=== PATIENT | female | born 1975 | race Caucasian/White ===

== ENCOUNTER 2023-12-25 06:27 | Outpatient (CLI) | payer BC, SELFPAY ==
[2023-12-25 06:47] LABS: Basophils Absolute Auto 0.1 K/mm3 (0.0-0.1); Basophils Percent Auto 0.9 % (0.2-1.2); Eosinophils Absolute Auto 0.2 K/mm3 (0-0.3); Eosinophils Percent Auto 3.3 % (0-4.4); Hematocrit 41.1 % (37.0-47.0); Hemoglobin 14.1 g/dL (12.0-15.0); Immature Granulocyte Absolute 0.02 K/mm3 (0.00-0.031); Immature Granulocyte Percent A 0.3 % (0-0.5); Lymphocytes Absolute Auto 2.31 K/mm3 (0.9-3.2); Lymphocytes Percent Auto 36.3 % (18.3-44.2); Mean Corpuscular HGB Conc 34.3 g/dl (32-36); Mean Corpuscular Hemoglobin 29.9 pg (26-34); Mean Corpuscular Volume 87.1 fl (80-100); Mean Platelet Volume 10.2 fl (7.4-10.4); Monocytes Absolute Auto 0.5 K/mm3 (0.1-0.6); Monocytes Percent Auto 8.5 % (2.6-8.5); Neutrophils Absolute Auto 3.2 K/mm3 (1.3-6.7); Neutrophils Percent Auto 50.7 % (45.5-73.1); Platelet Count Result 269 k/mm3 (150-375); Red Blood Count 4.72 M/mm3 (4.2-5.4); Red Cell Distribution Width 11.5 % (11.5-14.5); White Blood Count 6.4 K/mm3 (4.5-10.0)
[2023-12-25 06:59] LABS: Alanine Aminotransferase 16 U/L (6-35); Albumin Level 4.1 g/dL (3.5-5.1); Alkaline Phosphatase 57 U/L (38-126); Anion Gap 6 mmol/L (8-16); Aspartate Amino Transferase 23 U/L (14-36); Bilirubin,Total 0.6 mg/dL (0.2-1.3); Blood Urea Nitrogen 10 mg/dL (7-17); Carbon Dioxide 24 mmol/L (22-30); Chloride 108 mmol/L (98-107); Cholesterol 166 mg/dL (0-200); Estimated Glomerular Filt Rate > 60; Glucose 99 mg/dL (65-110); HDL Direct 34 mg/dL; Potassium 3.9 mmol/L (3.4-5.0); Sodium 138 mmol/L (137-145); Triglycerides 126 mg/dL (<150)
[2023-12-25 07:10] LABS: LDL Cholesterol Direct 113 mg/dL
[2023-12-25 07:37] LABS: Free T4 Free Thyroxine 1.66 ng/mL (0.78-2.19)
== END 2023-12-25 06:28 | disposition home or self-care (01) ==
LOC: ANHOBOP 06:30
PROVIDERS: PCP Student in an Organized Health Care Education/Training Program; Visit Provider Obstetrics & Gynecology
DX: I48.91 Unspecified atrial fibrillation (principal)
CPT/HCPCS: 36415; 80053; 80061; 84439; 84443; 85025

== ENCOUNTER 2025-06-06 05:52 | Outpatient (CLI) | payer BC, SELFPAY ==
--- OUTSIDE RECORDS SUMMARY | 2025-06-06 05:57 | XMS_ITS | Clinical Summary ---
Author Organization [facility] Address Formerly [facility] [place] [address] Care Team Providers Care Home Theater Installer Name Role Phone Richard Azevedo Brenda CASTRO Primary Care Provider + Allergies Active Allergy Reactions Criticality Noted Date Comments Senna Rash Medium Sulfa Antibiotics Hives Medium Medications Cholecalciferol 2000 units Tab take 1 by Oral route every day 0 Active aspirin 81 MG chewable tablet Chew 1 tablet (81 mg total) by mouth daily. Active cetirizine 10 MG tablet Take 1 tablet (10 mg total) by mouth daily. Active vitamin B-12 (CYANOCOBALAMIN) 1000 mcg tablet Take 1 tablet (1,000 mcg total) by mouth daily. Active Misc Natural Products ([employer] HEALTH OR) Take 1 tablet by mouth daily. Active TURMERIC CURCUMIN OR Take 1 tablet by mouth daily. Active magnesium oxide (MAG-OX) 250 MG tablet Take 1 tablet (250 mg total) by mouth daily. Active levothyroxine (SYNTHROID) 100 MCG tabletIndications:A cquired hypothyroidism Take 1 tablet (100 mcg total) by mouth every morning. 90 tablet 3 4 Active levothyroxine (SYNTHROID) 88 MCG tabletIndications:A cquired hypothyroidism Take 1 tablet (88 mcg total) by mouth every morning. 90 tablet 3 4 Active sotalol (BETAPACE) 80 MG tablet Take 1 tablet (80 mg total) by mouth 2 (two) times daily. 180 tablet 2 4 Active Active Problems Problem Noted Date Diagnosed Date Metabolic dysfunction-associated steatohepatitis (MASH) 06/03/2024 Atrial fibrillation, unspecified type (CMS/HCC H HS/HCC) 06/17/2019 Acquired hypothyroidism 06/17/2019 MVP (mitral valve prolapse) Immunizations Immunization Administration Dates Next Due Influenza Adult (Generic) 09/15/2023,09/26/2020 Pneumococcal (Prevnar 20) 08/07/2022 Tdap (Generic) 05/07/2016 Family History Medical History Relation Comments Cancer Father Lung Heart Disease Mother Relation Status Comments Brother Alive Father Mother Alive Social History Tobacco Use Types Packs/Day Years Used Date Smoking Tobacco: Never Smokeless Tobacco: Never Alcohol Use Standard Drinks/Week Comments Yes 0 (1 standard drink = 0.6 oz pure alcohol) Tries to just use on weekends, 1-2 AUDIT-C Answer Date Recorded Q1: How often do you have a drink containing alcohol? 4 or more times a week 08/23/2020 Q2: How many drinks containi ng alcohol do you have on a typical day when you are drinking? 3 or 4 0 Q3: How often do you have si x or more drinks on one occasion? Less than monthly 08/23/2020 PHQ-2 Answer Date Recorded Patient Health Questionnaire-2 Score 0 06/03/2024 Comments No Sex and Gender Information Value Date Recorded Sex Assigned at Not on file Legal Sex Female 7:54 PM CDT Gender Identity Female 02/12/2022 12:14 PM CDT Sexual Orientation Straight 02/12/2022 12 :14 PM CDT Last Filed Vital Signs Vital Sign Reading Time Taken Comments Blood Pressure 120/84 09/15/2024 10:33 AM CDT Pulse 75 09/15/2024 10:33 AM CDT Temperature 36.7 C (98.1 F) 06/03/2024 11:25 AM CDT Respiratory Rate 16 06/03/2024 11:25 AM CDT Oxygen Saturation 98% 09/15/2024 10:33 AM CDT Inhaled Oxygen Concentration - - Weight 100.2 kg (221 lb) 09/15/2024 10:33 AM CDT Height 185.4 cm (6' 1) 09/15/2024 10:33 AM CDT Body Mass Index 29.16 09/15/2024 10:33 AM CDT Plan of Treatment Upcoming Encounters Date Type Department Care Team (Late st Contact Info) Description 10/19/2025 12:45 PM ORTHOTIC AIDE Office Visit [facility], [facility] [address] [place] [address] Maxwell López MD Three [facility]. [facility] [address] [place], [place] [id number] Health Maintenance Due Date Last Done Comments Hepatitis B Vaccines (1 of 3 - 19+ 3-dose series) 1992 Zoster Vaccines (1 of 2) 2023 COVID-19 Vaccine (2023- season) 2024 12/01/2020, 11/10/2020 PHQ-2 (Physician [place]) 11/24/2024 06/03/2024 Annual Physical 06/03/2025 06/03/2024, 0803/2020, 06/17/2019 Colorectal Cancer Screening FIT-DNA (3 Years) 08/15/2025 08/15/2022, 08/15/2022 DTaP, Tdap and Td Vaccines (2 - Td or Tdap) 05/07/2026 05/07/2016 Mammogram Screening 09/28/2026 09/28/2024, 09/09/2023, 02/19/2022, Additional history exists Hepatitis C Completed 08/07/2022 Pneumococcal Vaccine: 50+ Years Completed 08/07/2022 Meningococcal B Vaccine Aged Out No l onger eligible based on patient's age to complete this topic Meningococcal Vaccine Aged Out No carmita andrew eligible based on patient's age to complete this topic RSV Immunizations Under 20 Months Aged Out No longer eligible based on patient's age to complete this topic Procedures Procedure Name Priority Date/Time Associated Diagnosis Comments MG SCREENING W NATALIIA DWAYNE DIGI Routine 09/28/2024 2:10 PM ORTHOTIC AIDE Screening mammogram for breast cancer COLOGUARD (EXACT SCIENCE) Routine 08/15/2022 9:55 AM CDT Screening for malignant neoplasm of colon HEPATITIS C ANTIBODY Routine 08/07/2022 1:48 PM CDT Screening for lipid disorders Screening for endocrine, metabolic and immunity disorder Need for hepatitis C screening test Annual physical exam from Last 3 Months or Most Recently Relevant to Health Maintenance Results * MG SCREENING W NATALIIA DWAYNE DIGI (09/28/2024 2:10 PM ORTHOTIC AIDE) Anatomical Region Laterality Modality Breast Bilateral Mammography 09/28/2024 2:18 PM ORTHOTIC AIDE Impressions 09/28/2024 2:19 PM ORTHOTIC AIDE IMPRESSION: No suspicious mammographic findings. Recommendation: 1. Routine Screening, Bilateral Assessment: ACR BI-RADS 2 - BENIGN FINDING(S) Ordered By: MAVERICK CEDILLO Interpreted By: Florentin Ryder, 09/28/2024 2:18 PM Narrative 09/28/2024 2:19 PM ORTHOTIC AIDE [address] [address] Examination: Screening bilateral mammogram Exam Date/Time: 09/28/2024 1:53 PM Clinical history: No current complaints. Comparison: 09/09/2023 Technique: Digital screening mammography of both breasts was performed. Breast tomosynthesis acquisitions were obtained and reviewed. This study was read with the assistance of a computer-aided detection system. Tissue density: There are scattered areas of fibroglandular density. Findings: No suspicious masses, malignant appearing calcifications, skin thickening or other abnormalities are present. No significant change from the prior exam. us Maverick Cedillo MD MAMMO Final Result * COLOGUARD (Xiaoying SCIENCE) (08/15/2022 9:55 AM CDT) COLOGUARD RESULT Negative Negative [employer] (CLIA #:[id number]) Comment: NEGATIVE TEST RESULT. A negative Cologuard result indicates a low likelihood that a colorectal cancer (CRC) or advanced adenoma (adenomatous polyps with more advanced pre-malignant features) is present. The chance that a person with a negative Cologuard test has a colorectal cancer is less than 1 in 1500 (negative predictive value >99.9%) or has an advanced adenoma is less than 5.3% (negative predictive value 94.7%). These data are based on a prospective cross-sectional study of 10,000 individuals at average risk for colorectal cancer who were screened with both Cologuard and colonoscopy. (Jacinto Roldan et al, N Engl J Med 2014;370(14):9032-8249) The normal value (reference range) for this assay is negative. COLOGUARD RE-SCREENING RECOMMENDATION: Periodic colorectal cancer screening is an important part of preventive healthcare for asymptomatic individuals at average risk for colorectal cancer. Following a negative Cologuard result, the [place] Cancer Society and U.S. Multi-Society Task Force screening guidelines recommend a Cologuard re-screening interval of 3 years. References: [place] Cancer Society Guideline for Colorectal Cancer Screening: https://www.cancer.org/cancer/ozzdh-dxwear-vqtdif/vvbygsffs-etltxcsku-aoirqbu/ac s-rec ommendations.html.; Fidencio DK, Alireza POLANCO, Tonia StevensK, Colorectal Cancer Screening: Recommendations for Physicians and Patients from the U.S. Multi-Society Task Force on Colorectal Cancer Screening , Am J Gastroenterology 2017; 112:4923-1844. TEST DESCRIPTION: Composite algorithmic analysis of stool DNA-biomarkers with hemoglobin immunoassay. Quantitative values of individual biomarkers are not reportable and are not associated with individual biomarker result reference ranges. Cologuard is intended for colorectal cancer screening of adults of either sex, 45 years or older, who are at average-risk for colorectal cancer (CRC). Cologuard has been approved for use by the U.S. FDA. The performance of Cologuard was established in a cross sectional study of average-risk adults aged 50-84. Cologuard performance in patients ages 45 to 49 years was estimated by sub-group analysis of near-age groups. Colonoscopies performed for a positive result may find as the most clinically significant lesion: colorectal cancer [4.0%], advanced adenoma (including sessile serrated polyps greater than or equal to 1cm diameter) [20%] or non- advanced adenoma [31%]; or no colorectal neoplasia [45%]. These estimates are derived from a prospective cross-sectional screening study of 10,000 individuals at average risk for colorectal cancer who were screened with both Cologuard and colonoscopy. (Jacinto Sebastian al, N Engl J Med 2014;370(14):1120-3876.) Cologuard may produce a false negative or false positive result (no colorectal cancer or precancerous polyp present at colonoscopy follow up). A negative Cologuard test result does not guarantee the absence of CRC or advanced adenoma (pre-cancer). The current Cologuard screening interval is every 3 years. ([place] Cancer Society and U.S. Multi-Society Task Force). Cologuard performance data in a 10,000 patient pivotal study using colonoscopy as the reference method can be accessed at the following location: www.Hittahem.[employer]/results. Additional description of the Cologuard test process, warnings and precautions can be found at www.cologuard.[employer]. STOOL STOOL SPECIMEN / Unknown 08/15/2022 9:55 AM CDT 08/16/2022 4:48 PM CDT Richard Azevedo DO BODY FLUIDS AND STOOLS O RDERABLES Final Result Performing Organization Address [facility] Co de Phone Number [facility] ([address] [facility]) [address] [place] [address], [email or web address] (CLIA #:[id number]) [address] [place] [address] * HEPATITIS C ANTIBODY (08/07/2022 1:48 PM CDT) HEPATITIS C AB NON-REACTI VE NON-REACT MOHAMUD 08/07/2022 10:[address] [facility] Comment: ANTIBODIES TO HCV NOT DETECTED. DOES NOT EXCLUDE THE POSSIBILITY OF EXPOSURE TO HCV. 08/07/2022 1:48 PM CDT Richard Azevedo DO LABORATORY Final Re sult Performing Organization Address [facility] Co de Phone Number [facility] [address] [place] [phone], [id number] from Last 3 Months or Most Recently Relevant to Health Maintenance Insurance [facility] Care Teams Home Theater Installer Relationship Specialty Start Date End Date Richard Azevedo DO [address] [place] [address] PCP - General FAMILY PRACTICE 08/07/22
--- OUTSIDE RECORDS SUMMARY | 2025-06-06 05:57 | XMS_ITS | Encounter Summary ---
Author Organization [facility] Address [address] [place] [address] Care Team Providers Care Cloth Bin Packer Name Role Phone Richard Azevedo Brenda CASTRO Primary Care Provider + Encounter Details Date Type Department Care Team ([facility] st Contact Info) Description 10/28/2023 [employer] Message Enc [facility] THREE [facility], [place] [id number] Maxwell López MD Three [facility]. [address] [address] Covid and Paxlovid Social History Tobacco Use Types Packs/Day Years [...] than monthly 08/23/2020 PHQ-2 Answer Date Recorded PHQ-2 Score - If the patient scores above 3, please move on to questions 3-9 0 08/07/2022 Comments No Sex and Gender Information Value Date Recorded Sex Assigned at Not on file Legal Sex Female 7:54 PM CDT Gender Identity Female 02/12/2022 12:14 PM CDT Sexual Orientation Straight 02/12/2022 12 :14 PM CDT documented as of this encounter Progress Notes * BETTIE Gaming - 10/29/2023 3:40 PM CST Not absolutely necessary. What symptoms is she having? RTISING SALES ASSISTANT * Carol Arboleda RN - 10/29/2023 8:49 AM CST Please advise. RTISING SALES ASSISTANT documented in this encounter Plan of Treatment Upcoming Encounters Date Type Department Care Team (Late st Contact Info) Description 10/19/2025 12:45 PM ADVERTISING SALES ASSISTANT Office Visit [facility], [address] [address] Maxwell López MD Three [facility]. [address] [address] documented as of this encounter Visit Diagnoses Not on filedocumented in this encounter Care Teams Cloth Bin Packer Relationship Specialty Start Date End Date Richard Azevedo DO [address] [place] [address] PCP - General FAMILY PRACTICE 08/07/22 documented as of this encounter
--- OUTSIDE RECORDS SUMMARY | 2025-06-06 05:57 | XMS_ITS | Clinical Summary ---
Author Organization [facility] [address] [facility] [address] Address [address] [place] [address] Care Team Providers Care Planning Associate Name Role Phone Mitali Garcia MD Primary Care Provider [phone] Allergies Active Allergy Reactions Criticality Noted Date Comments Senna Rash Medium Sennosides Rash Medium Sulfa (Sulfonamide Antibiotics) Hives Medium Medications cholecalciferol (VITAMIN D3) 2,000 unit capsule take 1 by Oral route every day 0 07/20/2010 Active multivitamin tablet tablet take 1 tablet by ORAL route every day with food 0 07/20/2010 Active calcium carbonate (CALCIUM 600) 1,500 mg (600 mg of elemental calcium) tablet take 1 by Oral route 2 times every day 0 0 08/30/2013 Active levothyroxine (SYNTHROID, LEVOTHROID) 175 mcg tablet daily. Active sotalol (BETAPACE) 80 mg tabletIndications :Paroxysmal atrial fibrillation (HCC) Take 1 tablet (80 mg total) by mouth 2 (two) times a day. 180 tablet 3 12/08/2018 Active Active Problems Problem Noted Date Diagnosed Date Mitral valve prolapse 01/13/2018 Paroxysmal atrial fibrillation 07/09/2017 Medical History Medical History Date Comments Hx Other Medical Hypothyroidism, Primary Hx Other Medical 2013 Stress fracture , LLE Family History Medical History Relation Name Comments Other Father 2 High chol, lung CA; Cause of : High chol, lung CA Relation Name Status Comments Father 1 (Age 65) Father 2 Social History Tobacco Use Types Packs/Day Years Used Date Smoking Tobacco: Never Smokeless Tobacco: Never Alcohol Use Standard Drinks/Week Comments Yes 2 (1 standard drink = 0.6 oz pur e alcohol) Comments Unknown Sex and Gender Information Value Date Recorded Sex Assigned at Not on file Legal Sex Female 12:58 AM EQUITIES ANALYST Gender Identity Not on file Sexual Orientation Not on file Obstetrics History Last Filed Vital Signs Vital Sign Reading Time Taken Comments Blood Pressure 104/72 12/08/2018 11:03 AM EQUITIES ANALYST Pulse 76 12/08/2018 11:03 AM EQUITIES ANALYST Temperature 37.1 C (98.7 F) 08/26/2017 12:27 PM CDT Respiratory Rate - - Oxygen Saturation 90% 12/08/2018 11:03 AM EQUITIES ANALYST Inhaled Oxygen Concentration - - Weight 103.9 kg (229 lb) 12/08/2018 11:03 AM EQUITIES ANALYST Height 185.4 cm (6' 1) 12/08/2018 11:03 AM EQUITIES ANALYST Body Mass Index 30.21 12/08/2018 11:03 AM EQUITIES ANALYST Plan of Treatment Not on file Insurance [facility] [place] [address] Care Teams Planning Associate Relationship Specialty Start Date End Date Mitali Garcia MD PCP - General Family Practice 8/16/17
--- OUTSIDE RECORDS SUMMARY | 2025-06-06 05:57 | XMS_ITS | Referral Summary ---
Author Organization [facility] [address] Address [address] [place] [address] Care Team Providers Care Sinter Feeder Name Role Phone Mitali Garcia MD Primary Care Provider [phone] Allergies Active Allergy Reactions Criticality Noted Date [...] valve prolapse 01/13/2018 Paroxysmal atrial fibrillation 07/09/2017 Social History Tobacco Use Types Packs/Day Years Used Date Smoking Tobacco: Never Smokeless Tobacco: Never Alcohol Use Standard Drinks/Week Comments Yes 2 (1 standard drink = 0.6 oz pur e alcohol) Comments Unknown Sex and Gender Information Value Date Recorded Sex Assigned at Not on file Legal Sex Female 12:58 AM AMERICAN BOARD CERTIFIED ORTHOTIST Gender Identity Not on file Sexual Orientation Not on file Last Filed Vital Signs Vital Sign Reading Time Taken Comments Blood Pressure 104/72 12/08/2018 11:03 AM AMERICAN BOARD CERTIFIED ORTHOTIST Pulse 76 12/08/2018 11:03 AM AMERICAN BOARD CERTIFIED ORTHOTIST Temperature 37.1 C (98.7 F) 08/26/2017 12:27 PM CDT Respiratory Rate - - Oxygen Saturation 90% 12/08/2018 11:03 AM AMERICAN BOARD CERTIFIED ORTHOTIST Inhaled Oxygen Concentration - - Weight 103.9 kg (229 lb) 12/08/2018 11:03 AM AMERICAN BOARD CERTIFIED ORTHOTIST Height 185.4 cm (6' 1) 12/08/2018 11:03 AM AMERICAN BOARD CERTIFIED ORTHOTIST Body Mass Index 30.21 12/08/2018 11:03 AM AMERICAN BOARD CERTIFIED ORTHOTIST Plan of Treatment Not on file Insurance [facility] CHOICE PLUS [facility] HMO/PPO Address: [place] [address] Care Teams Sinter Feeder Relationship Specialty Start Date End Date Mitali Garcia MD PCP - General Family Practice 07/09/17
--- OUTSIDE RECORDS SUMMARY | 2025-06-06 05:57 | XMS_ITS | Encounter Summary ---
Author Organization [facility] Address [address] [place] [address] Care Team Providers Care Shipping Hand Name Role Phone Filiberto Ocasio MD Primary Care Provider [phone] Richard Azevedo DO Primary Care Provider + Encounter Details Date Type Department Care Team (Late st Contact Info) Description 08/22/2020 Abstract [facility], [address] [address] Michael Ryan MA Social History Tobacco Use Types Packs/Day Years Used Date Smoking Tobacco: Never Smokeless Tobacco: Never Alcohol Use Standard Drinks/Week Comments Yes 0 (1 standard drink = 0.6 oz pur e alcohol) AUDIT-C Answer Date Recorded Q1: How often do you have a drink containing alcohol? 4 or more times a week 08/23/2020 Q2: How many drinks containi ng alcohol do you have on a typical day when you are drinking? 3 or 4 0 Q3: How often do you have si x or more drinks on one occasion? Less than monthly 08/23/2020 Comments No Sex and Gender Information Value Date Recorded Sex Assigned at Not on file Legal Sex Female 7:54 PM CDT Gender Identity Female 02/12/2022 12:14 PM CDT Sexual Orientation Straight 02/12/2022 12 :14 PM CDT COVID-19 Exposure Response Date Recorded In the last month, have you been in contact with someone who was confirmed or suspected to have Coronavirus / COVID-19? No / Unsure 08/23/2020 9:12 AM CDT documented as of this encounter Functional Status documented as of this encounter Plan of Treatment Upcoming Encounters Date Type Department Care Team (Late st Contact Info) Description 10/19/2025 12:45 PM CONTROL ELECTRICIAN Office Visit [facility] THREE [facility], [address] [address] Maxwell López MD Three [facility]. [facility] [address] [place] [address] documented as of this encounter Procedures Procedure Name Priority Date/Time Associated Diagnosis Comments LIPID PANEL Routine 01/13/2018 documented in this encounter Results * LIPID PANEL (01/13/2018) CHOLESTEROL 172 HDL 34 TRIGLYCERIDES 197 NON HDL CHOLESTEROL 138 LDL (CALCULATED) 98 01/13/2018 us Doc [facility] LABORATORY Final Result documented in this encounter Visit Diagnoses Not on filedocumented in this encounter Care Teams Shipping Hand Relationship Specialty Start Date End Date Filiberto Ocasio MD PCP - General FAMILY PRACTICE 06/17/19 08/06/22 Richard Azevedo DO [address] [place] [address] PCP - General FAMILY PRACTICE 08/07/22 documented as of this encounter
--- OUTSIDE RECORDS SUMMARY | 2025-06-06 05:57 | XMS_ITS | Encounter Summary ---
Author Organization [facility] Address [address] [address] Care Team Providers Care Public Bath Attendant Name Role Phone Kevin Cordoba MD Primary Care Provide r Mitali Garcia MD Primary Care Provider [phone] Encounter Details Date Type Department Care Team (Late st Contact Info) Description 04/01/2017 Orders Only [facility] ProviderCharly MD [address] [place] [address] Social History Tobacco Use Types Packs/Day Years Used Date Smoking Tobacco: Never Alcohol Use Standard Drinks/Week Comments Yes 0 (1 standard drink = 0.6 oz pur e alcohol) Comments Unknown Sex and Gender Information Value Date Recorded Sex Assigned at Not on file Legal Sex Female 12:58 AM ENTRY TECH Gender Identity Not on file Sexual Orientation Not on file documented as of this encounter Plan of Treatment Not on file documented as of this encounter Procedures Procedure Name Priority Date/Time Associated Diagnosis Comments CARDIOLOGY REPORT 04/01/2017 CARDIOLOGY REPORT 04/01/2017 documented in this encounter Results * CARDIOLOGY REPORT (04/01/2017) Anatomical Region Laterality Modality Other Narrative 04/01/2017 Ordered by an unspecified provider. Historical Provider [facility] Final Result * CARDIOLOGY REPORT (04/01/2017) Anatomical Region Laterality Modality Other Narrative 04/01/2017 Ordered by an unspecified provider. Historical Provider [facility] Final Result documented in this encounter Visit Diagnoses Not on filedocumented in this encounter Care Teams Public Bath Attendant Relationship Specialty Start Date End Date Kevin Cordoba MD [address] [facility] [address] [place] [address] PCP - General 08/30/13 07/08/17 Mitali Garcia MD [address] [facility] [address] [place] [address] PCP - General Family Practice 07/09/17 documented as of this encounter
--- OUTSIDE RECORDS SUMMARY | 2025-06-06 05:57 | XMS_ITS | Encounter Summary ---
Author Organization [facility] Address [address] [place] [address] Care Team Providers Care Brick Kiln Burner Name Role Phone Filiberto Ocasio MD Primary Care Provider [phone] Richard Azevedo DO Primary Care Provider + Encounter Details Date Type Department Care Team (Late st Contact Info) Description 02/26/2022 [employer] Message Enc [facility] Family Medicine [address] [address] [facility] Provider Appointment Request Social History Tobacco Use Types Packs/Day Years [...] Exposure Response Date Recorded In the last 10 days, have yo u been in contact with someone who was confirmed or suspected to have Coronavirus/COVID-19? No / Unsure 02/19/2022 10:32 AM CDT documented as of this encounter Plan of Treatment Upcoming Encounters Date Type Department Care Team (Late st Contact Info) Description 10/19/2025 12:45 PM FERRY ENGINEER Office Visit [facility] [place], [address] [id number] Maxwell López MD Three [facility]. [facility] [address] [place] [address] documented as of this encounter Visit Diagnoses Not on filedocumented in this encounter Care Teams Brick Kiln Burner Relationship Specialty Start Date End Date Filiberto Ocasio MD PCP - General FAMILY PRACTICE 06/17/19 08/06/22 Richard Azevedo DO [address] [place] [address] PCP - General FAMILY PRACTICE 08/07/22 documented as of this encounter
--- OUTSIDE RECORDS SUMMARY | 2025-06-06 05:57 | XMS_ITS | Data Portability ---
Author Organization [facility] Address [address] [address] Assessment No assessment recorded. Plan of Treatment Reminders Order Date Submit Date Provider Last Modified By Organization Details Last Modified Time Details Appointments None recorded. Lab rapid flu (A+B) 2016 017 [facility], [facility], [address], [place], [address], 7 16:17:35 Referral dermatolog ist referral 2017 018 [email or web address] Matt Freeman MD, [address] [place], [address], 8 15:28:08 Procedures None recorded. Surgeries None recorded. Imaging XR, chest, 2 view 2016 017 [facility], [address] [place], [address], 7 15:19:34 XR, chest, 2 view [address], [address] [place], [address], 7 10:58:51 Medication Orders levothyrox ine 88 mcg tablet 2016 017 mguthrifrandy [facility] 1418, [address], [address], 8 10:11:16 levothyrox ine 100 mcg tablet [address] [facility] 1418, [address], [address], 8 10:11:03 nystatin 100,000 unit/mL oral suspension 2016 017 [facility] 1418, [address], [address], 7 12:35:30 Tessalon Perles 100 mg capsule [address] [facility] 1418, [facility] [address], [address], 7 12:42:33 prednisone 20 mg tablet [address] [facility] 1418, [facility] [address], [address], 7 12:42:43 Patient TargetsNo targets recorded. Patient Instructions Encounter Date Encounter Id Patient Instructions Last Modified By Organization Details Last Modified Time 01/09/2017 [id number] I was present in the [facility] and available to review and discuss this patient with the resident. I agree with the assessement and plan. [email or web address] Not available 01/21/2017 16:05:51 01/31/2017 [id number] I was present an d available in the Family Medicine clinic to discuss this patient's care during the appointment. I agree with the resident's assessment and plan as documented. ADRY mar Not available 02/02/2017 13:15:15 12/16/2017 [id number] I was present in the clinic to discuss this patient at the time of the visit. I agree with the documented assessment and plan. Jenelle Rainey MD [email or web address] Not available 12/18/2017 23:00:49 Reason for Referral Overhead Crane Inspector Referral for S kin lesion Referring Physician: Yi Cervantes, Wheel Lacer And Truer, Encounter Date: 12/16/2017 Results Created Date Observation Date Name Description Value Unit Range Abnormal Flag Note LastModifiedBy Organization Detail LastModifiedTime 01/09/20 17 01/09/2017 rapid flu (A+B) please note: COMMEN T BECAU SE A NEGAT MOHAMUD RAPID INFLU JOSE DANIEL ANTIG EN EIA TEST MAY NOT RULE- OUT INFLU JOSE DANIEL VIRAL INFEC TION, THE CDC AND OTHER PUBLI C HEALT H AGENC IES HAVE RECOM SARIAH D THAT CONFI RMATO RY TESTI NG USING VIRAL CULTU RE OR NUCLE IC ACID AMPLI FICAT ION SHOUL D BE CONSI DERED WHEN CLINI JEFFRY SIGNS AND SYMPT OMS ARE CONSI STENT WITH INFLU JOSE DANIEL- LIKE ILLNE SS, WELL TO ELIJAH T IN DETEC TING OTHER RESPI RATOR Y VIRUS ES THAT CAN PRODU CE SIMIL AR CLINI JEFFRY SYMPT OMS. (REFE RENCE : WWW.C DC.GO V/FLU /PDF/ PROFE SSION ALS/D IAGNO SIS/C REI ANDREW_ HARVEY NCE_R IDT.P DF) Not Available [facility] ([facility]) [address] [place], [address], 01/10/2017 16:17:35 01/09/20 17 01/10/2017 rapid flu (A+B) influenza A Ag, EIA NEGATI VE negati ve Not Available [facility] ([facility]) [address] [place], [address], 01/10/2017 16:17:35 01/09/20 17 01/10/2017 rapid flu (A+B) influenza B Ag, EIA NEGATI VE negati ve Not Available [facility] ([facility]) [address] [place], [address], 01/10/2017 16:17:35 01/09/20 17 01/10/2017 rapid flu (A+B) comment SEE NOTE Not Available [facility] ([facility]) [address] [place], [address], 01/10/2017 16:17:35 02/27/20 17 02/27/2017 TSH, ultra -sens itive , serum TSH 0.017 uIU/m L 0.450- 4.500 below low normal Not Available [facility] ([facility]) [address] [facility], [place], [address], 02/27/2017 09:19:18 07/29/20 17 07/30/2017 CBC w/ auto diff WBC 7.6 x10e3 /uL 3.4-10 .8 Not Available [facility] ([facility]) [address] [place], [address], 07/30/2017 14:11:59 07/29/20 17 07/30/2017 CBC w/ auto diff RBC 4.63 x10e6 /uL 3.77-5 .28 Not Available [facility] ([facility]) [address] [facility], [place], [address], 07/30/2017 14:11:59 07/29/20 17 07/30/2017 CBC w/ auto diff hemoglobin 13.4 g/dL 11.1-1 5.9 Not Available [facility] ([facility]) [address] [facility], [place], [address], 07/30/2017 14:11:59 07/29/20 17 07/30/2017 CBC w/ auto diff hematocrit 41.2 % 34.0-4 6.6 Not Available [facility] ([facility]) [address] [facility], [place], [address], 07/30/2017 14:11:59 07/29/20 17 07/30/2017 CBC w/ auto diff MCV 89 fL 79-97 Not Available [facility] ([facility]) [address] [facility], [place], [address], 07/30/2017 14:11:59 07/29/20 17 07/30/2017 CBC w/ auto diff MCH 28.9 pg 26.6-3 3.0 Not Available [facility] ([facility]) [address] [facility], [place], [address], 07/30/2017 14:11:59 07/29/20 17 07/30/2017 CBC w/ auto diff MCHC 32.5 g/dL 31.5-3 5.7 Not Available [facility] ([facility]) [address] [facility], [place], [address], 07/30/2017 14:11:59 07/29/20 17 07/30/2017 CBC w/ auto diff RDW 12.2 % 12.3-1 5.4 below low normal Not Available [facility] ([facility]) [address] [facility], [place], [address], 07/30/2017 14:11:59 07/29/20 17 07/30/2017 CBC w/ auto diff platelets 270 x10e3 /uL 150-37 9 Not Available [facility] ([facility]) [address] [facility], [place], [address], 07/30/2017 14:11:59 07/29/20 17 07/30/2017 CBC w/ auto diff neutrophils 56 % Not Available [facility] ([facility]) [address] [facility], [place], [address], 07/30/2017 14:11:59 07/29/20 17 07/30/2017 CBC w/ auto diff lymphs 33 % Not Available [facility] ([facility]) [address] [facility], [place], [address], 07/30/2017 14:11:59 07/29/20 17 07/30/2017 CBC w/ auto diff monocytes 8 % Not Available [facility] ([facility]) [address] [facility], [place], [address], 07/30/2017 14:11:59 07/29/20 17 07/30/2017 CBC w/ auto diff eos 3 % Not Available [facility] ([facility]) [address] [place], [address], 07/30/2017 14:11:59 07/29/20 17 07/30/2017 CBC w/ auto diff basos 0 % Not Available [facility] ([facility]) [address] [place], [address], 07/30/2017 14:11:59 07/29/20 17 07/30/2017 CBC w/ auto diff immature cells TREE WRAPPER Not Available [facility] ([facility]) [address] [place], [address], 07/30/2017 14:11:59 07/29/20 17 07/30/2017 CBC w/ auto diff neutrophils (absolute) 4.2 x10e3 /uL 1.4-7. 0 Not Available [facility] ([facility]) [address] [place], [address], 07/30/2017 14:11:59 07/29/20 17 07/30/2017 CBC w/ auto diff lymphs (absolute) 2.5 x10e3 /uL 0.7-3. 1 Not Available [facility] ([facility]) [address] [place], [address], 07/30/2017 14:11:59 07/29/20 17 07/30/2017 CBC w/ auto diff monocytes(ab solute) 0.6 x10e3 /uL 0.1-0. 9 Not Available [facility] ([facility]) [address] [place], [address], 07/30/2017 14:11:59 07/29/20 17 07/30/2017 CBC w/ auto diff eos (absolute) 0.2 x10e3 /uL 0.0-0. 4 Not Available [facility] ([facility]) [address] [place], [address], 07/30/2017 14:11:59 07/29/20 17 07/30/2017 CBC w/ auto diff baso (absolute) 0.0 x10e3 /uL 0.0-0. 2 Not Available [facility] ([facility]) [address] [place], [address], 07/30/2017 14:11:59 07/29/20 17 07/30/2017 CBC w/ auto diff immature granulocytes 0 % Not Available [facility]) [address] [place], [address], 07/30/2017 14:11:59 07/29/20 17 07/30/2017 CBC w/ auto diff immature grans (abs) 0.0 x10e3 /uL 0.0-0. 1 Not Available [facility] ([facility]) [address] [place], [address], 07/30/2017 14:11:59 07/29/20 17 07/30/2017 CBC w/ auto diff NRBC TREE WRAPPER Not Available [facility] ([facility]) [address] [place], [address], 07/30/2017 14:11:59 07/29/20 17 07/30/2017 CBC w/ auto diff hematology comments: TREE WRAPPER Not Available [facility] ([facility]) [address] [facility], [place], [address], 07/30/2017 14:11:59 07/29/20 17 07/30/2017 CMP, serum or plasm a glucose, serum 99 mg/dL 65-99 Not Available [facility] ([facility]) [address] [place], [address], 07/30/2017 14:12:00 07/29/20 17 07/30/2017 CMP, serum or plasm a BUN 10 mg/dL 6-24 Not Available [facility] ([facility]) [address] [place], [address], 07/30/2017 14:12:00 07/29/20 17 07/30/2017 CMP, serum or plasm a creatinine, serum 0.66 mg/dL 0.57-1 .00 Not Available [facility] ([facility]) [address] [place], [address], 07/30/2017 14:12:00 07/29/20 17 07/30/2017 CMP, serum or plasm a eGFR if nonafricn AM 109 mL/mi n/1.7 3 >59 Not Available [facility] ([facility]) [address] [place], [address], 07/30/2017 14:12:00 07/29/20 17 07/30/2017 CMP, serum or plasm a eGFR if africn AM 125 mL/mi n/1.7 3 >59 Not Available [facility] ([facility]) [address] [place], [address], 07/30/2017 14:12:00 07/29/20 17 07/30/2017 CMP, serum or plasm a BUN/creatini ne ratio 15 9-23 Not Available [facility] ([facility]) [address] [place], [address], 07/30/2017 14:12:00 07/29/20 17 07/30/2017 CMP, serum or plasm a sodium, serum 139 mmol/ L 134-14 4 Not Available [facility] ([facility]) [address] [place], [address], 07/30/2017 14:12:00 07/29/20 17 07/30/2017 CMP, serum or plasm a potassium, serum 4.0 mmol/ L 3.5-5. 2 Not Available [facility] ([facility]) [address] [place], [address], 07/30/2017 14:12:00 07/29/20 17 07/30/2017 CMP, serum or plasm a chloride, serum 101 mmol/ L 96-106 Not Available [facility] ([facility]) [address] [place], [address], 07/30/2017 14:12:00 07/29/20 17 07/30/2017 CMP, serum or plasm a carbon dioxide, total 21 mmol/ L 18-29 Not Available [facility] ([facility]) [address] [facility] [place], [address], 07/30/2017 14:12:00 07/29/20 17 07/30/2017 CMP, serum or plasm a calcium, serum 9.2 mg/dL 8.7-10 .2 Not Available [facility] ([facility]) [address] [place], [address], 07/30/2017 14:12:00 07/29/20 17 07/30/2017 CMP, serum or plasm a protein, total, serum 6.6 g/dL 6.0-8. 5 Not Available [facility] ([facility]) [address] [place], [address], 07/30/2017 14:12:00 07/29/20 17 07/30/2017 CMP, serum or plasm a albumin, serum 4.1 g/dL 3.5-5. 5 Not Available [facility] ([facility]) [address] [facility], [place], [address], 07/30/2017 14:12:00 07/29/20 17 07/30/2017 CMP, serum or plasm a globulin, total 2.5 g/dL 1.5-4. 5 Not Available [facility] ([facility]) [address] [place], [address], 07/30/2017 14:12:00 07/29/20 17 07/30/2017 CMP, serum or plasm a A/G ratio 1.6 1.2-2. 2 Not Available [facility] ([facility]) [address] [place], [address], 07/30/2017 14:12:00 07/29/20 17 07/30/2017 CMP, serum or plasm a bilirubin, total 0.5 mg/dL 0.0-1. 2 Not Available [facility] ([facility]) [address] [place], [address], 07/30/2017 14:12:00 07/29/20 17 07/30/2017 CMP, serum or plasm a alkaline phosphatase, S 85 IU/L 39-117 Not Available [facility] ([facility]) [address] [place] [address], [address], 07/30/2017 14:12:00 07/29/20 17 07/30/2017 CMP, serum or plasm a AST (SGOT) 19 IU/L 0-40 Not Available [facility] ([facility]) [address] [place], [address], 07/30/2017 14:12:00 07/29/20 17 07/30/2017 CMP, serum or plasm a ALT (SGPT) 26 IU/L 0-32 Not Available [facility] ([facility]) [address] [place] [address], [address], 07/30/2017 14:12:00 07/29/20 17 07/30/2017 TSH, ultra -sens itive , serum TSH 0.071 uIU/m L 0.450- 4.500 below low normal Not Available [facility] ([facility]) [address] [place], [address], 07/30/2017 14:12:01 07/29/20 17 07/30/2017 TSH, ultra -sens itive , serum T4,free (direct) 2.07 NG/dL 0.82-1 .77 above high normal Not Available [facility] ([facility]) [address] [place] [address], [address], 07/30/2017 14:12:01 04/30/20 18 05/01/2018 TSH, ultra -sens itive , serum TSH 0.092 uIU/m L 0.450- 4.500 below low normal Not Available [facility] ([facility]) [address] [facility], [place], [address], 05/01/2018 14:14:53 04/30/20 18 05/01/2018 TSH, ultra -sens itive , serum T4,free (direct) 1.61 NG/dL 0.82-1 .77 Not Available [facility] ([facility]) [address] [facility], [place], [address], 05/01/2018 14:14:53 02/01/20 17 01/31/2017 XR, chest , 2 view TAL DICKINSON 2449 ADMIT/ SERVIC E DATE: ACCT: [id number] DISCHA RGE DATE: : 1974 SEX: F ORD SITE: [facility] NT IMAGIN G PT TYPE: REG CLI BLAKE LUU MD: CAMRON PEREZ MD STUDY DATE REPORT # ORDER # EXT ORDER ID [id number] PROC CODE: CXR2V PROCED URE DESCRI PTION: XR CHEST 2 VIEW I MPRESS ION: MINIMA L LEFT LOWER LOBE PULMON KYLIE INFILT RATE IS SEEN EXAMIN ATION: CHEST X-RAY 2 VIEW ACCESS ION: [id number] EXAM DATE/T LAITH: 017 2:54 PM CLINIC AL HISTOR Y: PERSIS TENT DRY COUGH FOR THREE WEEKS COMPAR DINORA: NONE TECHNI QUE: PA AND LATERA L VIEWS OF THE CHEST WERE OBTAIN ED. FINDIN GS: THERE IS MINIMA L LEFT LOWER LOBE PULMON KYLIE INFILT RATE. THERE ARE NO PLEURA L EFFUSI ONS. HEART SIZE AND PULMON KYLIE VASCUL ATURE ARE NORMAL . ELECTR ONICAL LY SIGNED BY: GEORGE HOPE/ 3:32 PM rody [facility] [address] [facility], [place], [address], 01/31/2017 21:57:36 02/27/20 17 02/26/2017 XR, chest , 2 view No observ ation record ed. [email or web address] Not Available 2016 17:58:32 04/01/20 17 04/01/2017 XR, chest , 2 view No observ ation record ed. [email or web address] Not Available 2016 11:55:52 05/01/20 17 05/01/2017 MAMMO , scree rajani, digit al, bilat eral No observ ation record ed. [email or web address] Not Available 2016 17:12:16 08/21/20 17 08/20/2017 elect rocar diogr am No observ ation record ed. [email or web address] Not Available 2016 13:04:55 09/09/20 17 08/20/2017 elect rocar diogr am No observ ation record ed. [email or web address] Not Available 2016 15:26:19 06/19/20 18 06/17/2018 elect rocar diogr am No observ ation record ed. [email or web address] [facility] [address] [place] [address] [address], [place], [address], 06/22/2018 08:47:34 01/01/20 19 mg scree rajani W mona hiwot digi [facility] [address] [facility] [address] This is a summar y report . The comple te report is availa ble in the patien t's medica l record . If you cannot access the medica l record , please contac t the sendin g organi chino for a detail ed fax or copy. EXAMIN ATION: Digita l bilate ral screen ing mammog rich with 3-D tomosy nthesi s ACCESS ION: [id number] EXAM DATE/T LAITH: 019 12:35 PM REASON FOR EXAM: Routin e screen ing COMPAR DINORA: 2016, 2013 TECHNI QUE: Digita l screen ing mammog sirena of both breast s was perfor med in additi on to 3-D Tomosy nthesi s techni que. This study was read with the assist ance of a [employer] er-aid ed detect ion system . TISSUE DENSIT Y: The breast tissue is hetero geneou sly dense. FINDIN GS: Renifo rm nodule superi yolande right breast consis tent with lymph node. No spicul ated mass lesion . No suspic ious calcif icatio ns. No skin thicke rajani or retrac tion. Subopt imal visual izatio n of the deep aspect right breast on initia l images . Patien t return ed 2018 for repeat right breast images . =====I MPRESS ION:== === No suspic ious mass lesion or suspic ious calcif icatio ns. ASSESS MENT: ACR BI-RAD S Catego ry 2 - Benign . RECOMM ENDATI ON: 1: Screen ing mammog rich bilate ral in 1 year ====== ====== ====== ====== Electr onical ly Signed By: Mya santana MD on 01/01/20 19 11:[address], [address], 01/03/2019 12:37:26 01/01/20 19 12/17/2018 MAMMO , diagn ostic , digit al, bilat eral No observ ation record ed. KEVIN Not Available 2018 12:37:27 Result Notes Documentation Provider Name and Address Organization Details Recorded Time Xr, Chest, 2 View : PATRICIA ALVAREZ ADMIT/SERVICE DATE: 01/31/17 ACCT: [id number] DISCHARGE DATE: : 1975 SEX: F ORD SITE: [facility] OUT[facility] IM[facility] PT TYPE: REG CLI ORDERING MD: MJ MARTINEZ MD STUDY DATE REPORT # ORDER # EXT ORDER ID 01/31/17 [id number] PROC CODE: CXR2V PROCEDURE DESCRIPTION: XR CHEST 2 VIEW IMPRESSION: MINIMAL LEFT LOWER LOBE PULMONARY INFILTRATE IS SEEN EXAMINATION: CHEST X-RAY 2 VIEW EXAM DATE/TIME: 01/31/2017 2:54 PM CLINICAL HISTORY: PERSISTENT DRY COUGH FOR THREE WEEKS COMPARISON: NONE TECHNIQUE: PA AND LATERAL VIEWS OF THE CHEST WERE OBTAINED. FINDINGS: THERE IS MINIMAL LEFT LOWER LOBE PULMONARY INFILTRATE. THERE ARE NO PLEURAL EFFUSIONS. HEART SIZE AND PULMONARY VASCULATURE ARE NORMAL. ELECTRONICALLY SIGNED BY: GEORGE DUNCAN01/31/2017 3:32 PM Mj Mota MD Attn: Accounting,[address] [place], [address], [place] 01/31/2017 21:57:36 Problems Name Problem SNOMED Code Status Onset Date Resolution Date Notes Provider Name and Address Organization Details Recorded Time Hypothyroi dism 95550557 Active Aimee Stewart null, [place] - [facility] 6 09:56:53 Mitral valve prolapse 190309183 Active sees cardiology Jana wyman, [place] - [facility] 6 10:30:05 Seasonal allergy 350281636 Active Jana wyman, [place] [facility] 6 10:30:05 Problem Notes None recorded. Procedures Surgical History Date Name Laterality Status Provider Name and Address Organization Details Recorded Time 7 Tonsillectomy completed Jana Ardon [place] [facility] 6 10:31:01 6 Hernia Repair completed Jana Ardon [place] [facility] 6 10:31:01 Other completed Jana Ardon [place] 016 10:31:01 Imaging Results None recorded. Procedure Notes None recorded. Medical Equipment None Reported. Allergies Allergen ID Allergen Name Allergen Category Reaction Reaction Severity Criticality Documentation Date Start Date Code Code System Note Provider Name and Address Organization Details Recorded Time 35836 Substance with sulfonami de structure and antibacte rial mechanism of action (substanc e) medicatio n rash Not available Not available 05/07/2016 [address] [address] [place], [place] - [facility] 6 10:17:16 20951 sennoside s, [facility] medicatio n Not available Not available Not available 05/07/2016 97851 RxNorm E[place] Grubbs, [place] - [facility] 6 10:20:01 Medications Name Sig Start Date Stop Date Status Note LastModified by Organization Details LastModified Time levothyro xine 175 mcg tablet TAKE 1 TABLET BY MOUTH ONCE DAILY active Not Available Not Available No t Available nystatin 100,000 unit/mL oral suspensio n Take 5 mL twice a day by oral route for 7 days. active Not Available Not Available No t Available prednison e 10 mg tablet 10/31 completed Not Available Not Available Not Available azithromy dev 250 mg tablet TAKE 2 TABLETS (500 MG) BY ORAL ROUTE ONCE DAILY FOR 1 DAY THEN 1 TABLET (250 MG) BY ORAL ROUTE ONCE DAILY FOR 4 DAYS active Not Available Not Available No t Available fluconazo le 150 mg tablet active Not Available Not Available Not Available hydrocodo ne 5 mg-acetam inophen 325 mg tablet active Not Available Not Available Not Available sotalol 80 mg tablet active Not Available Not Available Not Available prednison e 20 mg tablet Take 20 mg every day by oral route for 5 days. 02/26 completed Not Available Not Available Not Available levothyro xine 25 mcg tablet TAKE ONE TABLET BY MOUTH ONCE DAILY 05/01 completed 02/26/17 TSH 0.017. Dose decrease d to 200mcg daily. Not Available Not Available Not Available levothyro xine 100 mcg tablet TAKE ONE TABLET BY MOUTH ONCE DAILY 05/07 completed refill request from pharm. Dose was decrease d 07/31/17. TSH ordered per Dr Garcia. Not Available Not Available Not Available levothyro xine 88 mcg tablet TAKE ONE TABLET BY MOUTH ONCE DAILY 05/07 completed refill request from pharm. Dose was decrease d 07/31/17. TSH ordered per Dr Garcia. Not Available Not Available Not Available benzonata te 100 mg capsule Take 1 capsule 3 times a day by oral route. 02/26 completed Not Available Not Available Not Available levothyro xine 200 mcg tablet TAKE ONE TABLET BY MOUTH ONCE DAILY 03/31 completed Not Available Not Available Not Available metoprolo l succinate ER 25 mg tablet,ex tended release 24 hr Take 1.5 tablets every day by oral route. active Not Available Not Available No t Available methylpre dnisolone 4 mg tablets in a dose pack 10/31 completed Not Available Not Available Not Available naproxen 500 mg tablet active Not Available Not Available Not Available nitrofura ntoin monohydra te/macroc rystals 100 mg capsule active Not Available Not Available Not Available Multaq 400 mg tablet active Not Available Not Available Not Available Lotemax 0.5 % eye gel drops active Not Available Not Available No t Available Vitals Date Recorded Body height Body mass index (BMI) Body weight Body temperature Heart rate Systolic And Diastolic Provider Name and Address Organization Details Last Updated DateTime 8 183.515 cm 28 kg/m2 07603.2 1 g 98.7 [degF] 80 /min 110/92 mm[Hg] Basilia Smith MA [facility] 8 15:25:35 Date Recorded Body height Body weight Body mass index (BMI) Heart rate Body temperature Systolic And Diastolic Provider Name and Address Organization Details Last Updated DateTime 7 183.515 cm 92956.0 7 g 26.9 kg/m2 76 /min 98.5 [degF] 118/90 mm[Hg] Jaxon Hardy [facility] 7 16:17:06 Date Recorded Body height Body weight Body mass index (BMI) Heart rate Oxygen saturation Oxygen saturation in Arterial blood by Pulse oximetry Body temperature Systolic And Diastolic Provider Name and Address Organization Details Last Updated DateTime 7 183.515 cm 50797.6 6 g 27.2 kg/m2 113 /min 98 % 98 % 98.3 [degF] 120/80 mm[Hg] Patsy Abreu [facility] 7 14:20:27 Date Recorded Systolic And Diastolic Provider Name and Address Organization Details Last Updated DateTime 02/26/2017 110/80 mm[Hg] Mitali Garcia MD Attn: Accounting,[address] [place], [address], [facility] 02/26/2017 12:40:40 Date Recorded Body height Body weight Body mass index (BMI) Body temperature Heart rate Oxygen saturation Oxygen saturation in Arterial blood by Pulse oximetry Systolic And Diastolic Provider Name and Address Organization Details Last Updated DateTime 7 183.515 cm 44017.2 5 g 27.3 kg/m2 98 [degF] 124 /min 96 % 96 % 144/84 mm[Hg] Basilia Smith MA [facility] 7 12:21:04 Date Recorded Body height Body mass index (BMI) Body weight Heart rate Body temperature Oxygen saturation Oxygen saturation in Arterial blood by Pulse oximetry Systolic And Diastolic Provider Name and Address Organization Details Last Updated DateTime 7 183.515 cm 28.6 kg/m2 25710.9 8 g 82 /min 98.6 [degF] 98 % 98 % 122/96 mm[Hg] Anel Arana LUCIEN [facility] 7 12:30:52 Social History Question Answer Notes LastModified by Organizat ion Details LastModified Time Tobacco Smoking Status Never Smoker Basilia Smith MA null, [facility] 05/07/2016 10:17:16 What Was The Date Of Your Most Recent Tobacco Screening? 12/16/2017 Information n ot available 06/17/2019 Sex: Unknown Functional Status None recorded. Mental Status None recorded. Family History Relationship Description Onset Age of this Age Resolved Age Notes LastModified by Organization Details LastModified Time Father Malignant neoplasm of lung 65 [email or web address] Not available 2015 10:31:27 Father Hyperlipidem ia [email or web address] Not available 2015 10:31:27 Medical History No medical history recorded. Gynecological HistoryNo gynecological history recorded. Obstetrics History GPAL:G 0 P 0 0 0 0 Immunizations Vaccine Type Date Status Note Provider Nam e and Address Organization Details Recorded Time Tdap 05/07/2016 completed Not Available [employer] 12/11/2019 02:39:51 COVID-19, mRNA, LNP-S, PF, 30 mcg/0.3 mL dose 11/10/2020 completed Kary Huffman null, [place] [facility] 07/06/2021 14:59:56 COVID-19, mRNA, LNP-S, PF, 30 mcg/0.3 mL dose 12/01/2020 completed Kary Huffman null, [place] - [facility] 07/06/2021 15:00:07 Past Encounters Encounter ID Performer Location Encounter Start Date Encounter Closed Date Diagnosis/Indication Diagnosis SNOMED-CT Code Diagnosis ICD10 Code Diagnosis Note [id number] MD Freda Gould FP ([facility]) [address] [place] [id number] 2 05/07/2016 10:04:26 05/07/2016 11:12:39 Hypothyroidism 07802481 E03.9 Check labs. Last check was 3. Currently on synthroid 175mcg. Adjust prn. Adult heal th examination [id number] Z00.00 - Last mammogram 1.5 years ago, plan repeat by end 2015 (seen by Dr. Sanchez) - Last pap 1.5 years ago, negative per report; plan repeat by end 2016 (seen by Dr. Sanchez) - Due for TDaP, give today Fatigue [id number] R53.83 Check labs. Screening for disorder [id number] Z13.9 [id number] DO Amadeo Hopkins ([facility]) [address] [place] [id number] 2 10/30/2016 10:56:04 10/31/2016 09:22:20 Right upper quadrant pain 448046663 R10.11 - Differenti als include biliary colic vs Sphincter of Oddi dysfunctio n vs hepatitis vs pancreatit is - CBC, CMP, amylase/li pase- Abdominal U/S Hypothyroidism 54528767 E03.9 - Requests TSH check [id number] MD Amadeo Haas ([facility]) [address] [place] [address] 2 01/09/2017 15:34:26 01/14/2017 14:07:29 Influenza-like symptoms [id number] R68.89 since her job had several cases of influenza and she works int he [employer] everyone was required to be swabbedsym ptoms are not consistent with the flurecomme nd to continue with supportive measuresfo llow up if the sx progress. [id number] MD Amadeo Haas ([facility]) [address] [place] [id number] 2 01/31/2017 14:10:05 02/03/2017 10:58:50 Persistent cough [id number] R05 Likely viral or post-viral cough but with symptom duration must rule out other causes: bacterial, functional Will get chest x-ray Benzonatat e for cough, prednisone burst [id number] MD Freda Diaz FP ([facility]) [address] [place] [address] 02/26/2017 12:13:11 02/27/2017 16:12:18 Pneumonia 170308258 J18.9 Doing well encouraged to slowly increase activity Candidiasis of mouth [id number] 51378 B37.0 discussed dx and tx options and will tx with nystatin. Hypothyroidism 97265146 E03.9 stable on medication getting labs and will adjust medication s after results. [id number] MD Freda Diaz FP ([facility]) [address] [facility] [place] [address] 07/31/2017 12:17:00 08/04/2017 11:32:22 Hypothyroidism 75078714 E03.9 Recent results show a little too much thyroid- will lower from 200 to 188 and follow up in two months with blood work. Atrial fibrillation 4943 6004 I48.91 Had one episode - knows the symptoms. Discussed diet, activity and thyroid medication s. Follow up as needed. She is seeing cardiology . [id number] Jenelle Rainey MD [facility] 47 3 [facility] issac [address] [place] [address] 12/16/2017 15:16:31 12/17/2017 12:24:02 Skin lesion 43688691 L98.9 Appears cyst-like (1x1 cm growth under the skin of L index finger on medial side of nail). Does not appear infected.- Due to area, growth in size, and pain, will refer to dermatolog y Health Concerns Section Related Observation LastModified by Organization Detai ls LastModified Time None Recorded Concern Status LastModified by Organization Details LastModified Time None Recorded Advance Directives Directive None Recorded Payers Insurance Date Sequence Insurance Name Policy Number Policy Antonio Covered Member ID Antonio Member ID Guarantor Name 12/16/2017 1 [facility] [id number] Johnathan Alvarez [id number] Patricia Alvarez Notes Date Note Type Note Provider Name and Address Organization Details Recorded Time 01/09/2017 text/html Pt presents to t he clinic for request from work for evaluation for flu since it has been present at work. She has has 2-3 days of non productive cough, chills, clear nasal drainage and myalgias. She has also noted frontal headaches with frontal sinus pressure and L sided ear pressure. She has had 1 day of fatigue and irritation of the throat. No fever, no chills. No SOB. She has used oTC Mucinex and Ibuprofen that has been helpful. Viry Rogers [facility] 01/21/2017 16:05:54 01/31/2017 text/html Patient complain s of more than 3 weeks of cough, occasionally productive of clear sputum. She has tried Mucinex (dextromethorphan, guaifenesin, phenylephrine) which helped somewhat initially but not as much lately. She denies fevers, chills, vomiting, diarrhea. She does endorse some back pain over her left shoulder blade that my be due to coughing. She has no history of asthma and did a PFT within the last 6 months which was negative. She does have a history of seasonal allergies. Julianna Lawton MD Attn: Accounting,[address] [place], [address], [facility] 02/02/2017 13:15:18 02/26/2017 text/html Generic HPI TemplateReported bypatient.Notes:S/P dx of pneumonia doing well on antibiotics but now has symptoms of thrush. Mitali Garcia MD Attn: Accounting[address] [place], [address], [facility] 02/26/2017 12:53:57 07/31/2017 text/html Generic HPI TemplateReported bypatient.Notes:Was recently admitted for a once time episode of afib. She was not started on on any medication and the exact cause is not known. She has not had any further episodes since the admission.ThyroidRepor rylan bypatient.Quality:not changing Severity:moderate Duration:intermittent Context:no history of thyroid disease Exerciseno exercise Associated Symptoms:no cold intolerance; no heat intolerance; no weight loss; no weight gain; no double vision; no dry eyes; no hoarseness; no difficulty swallowing; no neck masses; no deepening of the voice; no increased blood pressure; no chest pain; no chest tightess or pressure; no constipation; no diarrhea; no vomiting;fast heart rate;palpitations Mitali Garcia MD Attn: Accounting[address] [place], [address], [facility] 08/04/2017 09:21:14 12/16/2017 text/html 42 y/o F present s w/ cyst-like lesion on L index finger on medial side of her nail. It is painful and has been growing in size in the past month. Patient states she has tried freezing it thinking it was a wart, but it is just growing in size and more painful. Jenelle Rainey MD Attn: Accounting[address] [place], [address], [facility] 12/18/2017 23:00:54 OBGyn Episode No OBEpisode recorded.
[2025-06-06 06:24] LABS: Hematocrit 39.9 % (37.0-47.0); Hemoglobin 13.1 g/dL (12.0-15.0); Immature Granulocyte Percent A 0.3 % (0-0.5); Lymphocytes Absolute Auto 2.48 K/mm3 (0.9-3.2); Mean Corpuscular HGB Conc 32.8 g/dl (32-36); Mean Corpuscular Hemoglobin 30.0 pg (26-34); Mean Corpuscular Volume 91.3 fl (80-100); Nucleated Red Blood Cells Absolute Auto 0.000 K/mm3 (0.0-0.012); Nucleated Red Blood Cells Perc 0.0 % (0.0-0.2); Platelet Count Result 249 k/mm3 (150-375); Red Blood Count 4.37 M/mm3 (4.2-5.4); White Blood Count 5.9 K/mm3 (4.5-10.0)
[2025-06-06 06:46] LABS: Alanine Aminotransferase 23 U/L (6-35); Albumin Level 3.9 g/dL (3.5-5.1); Alkaline Phosphatase 65 U/L (38-126); Anion Gap 10 mmol/L (4-12); Aspartate Amino Transferase 31 U/L (14-36); Bilirubin,Total 0.5 mg/dL (0.2-1.3); Blood Urea Nitrogen 11 mg/dL (7-17); Calcium 8.6 mg/dL (8.4-10.2); Carbon Dioxide 18 mmol/L (22-30); Chloride 109 mmol/L (98-107); Cholesterol 175 mg/dL (0-200); Estimated Glomerular Filt Rate > 60; Glucose 106 mg/dL (65-110); HDL Direct 44 mg/dL; Potassium 3.8 mmol/L (3.4-5.0); Sodium 137 mmol/L (137-145); Total Protein 6.8 g/dL (6.3-8.2); Triglycerides 347 mg/dL (<150)
[2025-06-06 07:03] LABS: Free T4 Free Thyroxine 1.44 ng/dL (0.78-2.19)
[2025-06-06 07:22] LABS: Thyroid Stimulating Hormone 0.346 uIU/mL (0.465-4.680)
== END 2025-06-06 05:53 | disposition home or self-care (01) ==
LOC: ANHOBOP 05:54
PROVIDERS: PCP Student in an Organized Health Care Education/Training Program; Visit Provider Obstetrics & Gynecology
DX: R53.83 Other fatigue (principal)
CPT/HCPCS: 36415; 80053; 80061; 84439; 84443; 85025; 86376

== ENCOUNTER 2025-11-18 08:29 | Outpatient (CLI) | payer BC, SELFPAY ==
--- OUTSIDE RECORDS SUMMARY | 2025-11-18 08:32 | XMS_ITS | Encounter Summary ---
Author Organization [facility] Address [address] [place] [address] Care Team Providers Care Livestock Dealer Name Role Phone Filiberto Ocasio MD Primary Care Provider [phone] Richard Azevedo DO Primary Care Provider + Encounter Details Date Type Department Care Team (Late st Contact Info) Description 08/22/2020 Abstract [facility], [address] [address] Michael Ryan MA Social History [...] Care Team (Late st Contact Info) Description 12/27/2025 11:15 AM HEALTH WORKER Office Visit [facility] [address] [place] [address] Maxwell López MD Three [facility]. [address] [place] [address] documented as of this encounter Procedures Procedure Name Priority Date/Time Associated Diagnosis Comments LIPID PANEL Routine 01/13/2018 documented in this encounter Results * LIPID PANEL (01/13/2018) CHOLESTEROL 172 HDL 34 TRIGLYCERIDES 197 NON HDL CHOLESTEROL 138 LDL (CALCULATED) 98 01/13/2018 us Doc [facility] Abstract LABORATORY Final Result documented in this encounter Visit Diagnoses Not on filedocumented in this encounter Care Teams Livestock Dealer Relationship Specialty Start Date End Date Filiberto Ocasio MD PCP - General FAMILY PRACTICE 06/17/19 08/06/22 Richard Azevedo DO [address] [place] [address] PCP - General FAMILY PRACTICE 08/07/22 documented as of this encounter
--- OUTSIDE RECORDS SUMMARY | 2025-11-18 08:32 | XMS_ITS | Encounter Summary ---
Author Organization [facility] Address [address] [place] [address] Care Team Providers Care Clinical Account Manager Name Role Phone Richard Azevedo Primary Care Provider + Encounter Details Date Type Department Care Team (Late st Contact Info) Description 06/07/2025 [employer] Message Enc [facility] THREE [facility], [place] [address] Maxwell López MD Three [facility]. [address] [address] Elevated triglycerides Social History Tobacco Use Types Packs/Day Years [...] PM CDT documented as of this encounter Plan of Treatment Upcoming Encounters Date Type Department Care Team (Late st Contact Info) Description 12/27/2025 11:15 AM DAY HABILITATION SPECIALIST Office Visit [facility] THREE [facility], [address] [phone] Maxwell López MD Three [facility]. [address] [address] documented as of this encounter Visit Diagnoses Not on filedocumented in this encounter Care Teams Clinical Account Manager Relationship Specialty Start Date End Date Richard Azevedo DO [address] [place] [address] PCP - General FAMILY PRACTICE 08/07/22 documented as of this encounter
--- OUTSIDE RECORDS SUMMARY | 2025-11-18 08:32 | XMS_ITS | Encounter Summary ---
Author Organization [facility] Address [address] [place] [address] Care Team Providers Care Ferry Pilot Name Role Phone Richard Azevedo Brenda CASTRO Primary Care Provider + Encounter Details Date Type Department Care Team ([facility] st Contact Info) Description 10/28/2023 [facility] Message Enc [facility] THREE [facility], [place] [phone] Maxwell López MD Three [facility]. [address] [phone] Covid and Paxlovid Social History Tobacco Use [...] absolutely necessary. What symptoms is she having? O ADJUSTER * Carol Arboleda RN - 10/29/2023 8:49 AM CST Please advise. O ADJUSTER documented in this encounter Plan of Treatment Upcoming Encounters Date Type Department Care Team (Late st Contact Info) Description 12/27/2025 11:15 AM RADIO ADJUSTER Office Visit [facility] THREE [facility], [address] [address] Maxwell López MD Three [facility]. [address] [address] documented as of this encounter Visit Diagnoses Not on filedocumented in this encounter Care Teams Ferry Pilot Relationship Specialty Start Date End Date Richard Azevedo DO [address] [place] [address] PCP - General FAMILY PRACTICE 08/07/22 documented as of this encounter
--- OUTSIDE RECORDS SUMMARY | 2025-11-18 08:32 | XMS_ITS | Encounter Summary ---
Author Organization [facility] Address [address] [address] Care Team Providers Care Hide Or Skin Buffer Name Role Phone Kevin Cordoba MD Primary Care Provide r Mitali Garcia MD Primary Care Provider [phone] Encounter Details Date Type Department Care Team (Late st Contact Info) Description 04/01/2017 Orders Only [facility] ProviderCharly MD [address] [place] [address] Social History Tobacco Use Types Packs/Day Years Used Date Smoking Tobacco: Never Alcohol Use Standard Drinks/Week Comments Yes 0 (1 standard drink = 0.6 oz pur e alcohol) Comments Unknown Sex and Gender Information Value Date Recorded Sex Assigned at Not on file Legal Sex Female 12:58 AM ANTISQUEAK FILLER Gender Identity Not on file Sexual Orientation [...] on filedocumented in this encounter Care Teams Hide Or Skin Buffer Relationship Specialty Start Date End Date Kevin Cordoba MD [address] [facility] [address] [place] [address] PCP - General 08/30/13 07/08/17 Mitali Garcia MD [address] [facility] [address] [place] [address] PCP - General Family Practice 07/09/17 documented as of this encounter
--- OUTSIDE RECORDS SUMMARY | 2025-11-18 08:32 | XMS_ITS | Encounter Summary ---
Author Organization [facility] Address [address] [place] [address] Care Team Providers Care Budder Name Role Phone Filiberto Ocasio MD Primary Care Provider [phone] Richard Azevedo DO Primary Care Provider + Encounter Details Date Type Department Care Team (Late st Contact Info) Description 02/26/2022 [employer] Message Enc [facility] Family Medicine [address] [address] [facility] Provider Appointment Request Social History Tobacco Use [...] st Contact Info) Description 12/27/2025 11:15 AM STUDY HALL SUPERVISOR Office Visit [facility] THREE [facility], [address] [phone] Maxwell López MD Three [facility]. [facility] [address] [place] [address] documented as of this encounter Visit Diagnoses Not on filedocumented in this encounter Care Teams Budder Relationship Specialty Start Date End Date Filiberto Ocasio MD PCP - General FAMILY PRACTICE 06/17/19 08/06/22 Richard Azevedo DO [address] [place] [address] PCP - General FAMILY PRACTICE 08/07/22 documented as of this encounter
--- OUTSIDE RECORDS SUMMARY | 2025-11-18 08:32 | XMS_ITS | Encounter Summary ---
Author Organization [facility] Address [address] [place] [address] Care Team Providers Care Farmworker Dairy Name Role Phone Richard Azevedo DO Primary Care Provider + Encounter Details Date Type Department Care Team (Late st Contact Info) Description 09/22/2025 Results Follow-Up [facility] Family & Internal Medicine [facility] [address] [place] [address] Richard Azevedo DO [address] [place] [address] JACKELINE (EX[employer] SCIENCE) Social History Tobacco Use Types Packs/Day Years Used Date Smoking Tobacco: Never Smokeless Tobacco: Never Alcohol Use Standard Drinks/Week Comments Yes 3.3 (1 standard drin k = 0.6 oz pure alcohol) Tries to [...] Date Recorded Patient Health Questionnaire-2 Score 0 08/05/2025 Comments No Sex and Gender Information Value Date Recorded Sex Assigned at Not on file Legal Sex Female 7:54 PM CDT Gender Identity Female 02/12/2022 12:14 PM CDT Sexual Orientation Straight 02/12/2022 12 :14 PM CDT documented as of this encounter Plan of Treatment Upcoming Encounters Date Type Department Care Team (Late st Contact Info) Description 12/27/2025 11:15 AM WET PROCESS HEAD MILLER Office Visit [facility] THREE [facility], [address] [phone] Maxwell López MD Three [facility]. [address] [address] documented as of this encounter Visit Diagnoses Not on filedocumented in this encounter Care Teams Farmworker Dairy Relationship Specialty Start Date End Date Richard Azevedo DO [address] [place] [address] PCP - General FAMILY PRACTICE 08/07/22 documented as of this encounter
--- OUTSIDE RECORDS SUMMARY | 2025-11-18 08:32 | XMS_ITS | Clinical Summary ---
Author Organization [facility] Address [address] [place] [id number] Care Team Providers Care Grinder Operator Tool Name Role Phone WiliamraissanathanomarRichard Brenda CASTRO Primary Care Provider + Allergies Active Allergy Reactions Criticality Noted Date Comments Senna Rash High 05/06/2023 Sulfa Antibiotics Hives,Rash High 05/06/2023 Medications Cholecalciferol 2000 units Tab take 1 by Oral route every day 0 Active aspirin 81 MG chewable tablet Chew 1 tablet (81 mg total) by mouth daily. Active cetirizine 10 MG tablet Take 1 tablet (10 mg total) by mouth daily. Active vitamin B-12 (CYANOCOBALAMIN) 1000 mcg tablet Take 1 tablet (1,000 mcg total) by mouth daily. Active Misc Natural Products (Mobi[employer]s HEALTH OR) Take 1 tablet by mouth daily. Active TURMERIC CURCUMIN OR Take 1 tablet by mouth daily. Active magnesium oxide (MAG-OX) 250 MG tablet Take 1 tablet (250 mg total) by mouth daily. Active NIACIN-50 OR Take 500 mg by mouth every evening. 5 Active estradiol (ESTRACE) 0.5 MG tablet Take 1 tablet (0.5 mg total) by mouth daily. 5 Active loteprednol (LOTEMAX) 0.5 % ophthalmic suspension During allergy season 5 Active levothyroxine (SYNTHROID) 100 MCG tabletIndications:A cquired hypothyroidism Take 1 tablet (100 mcg total) by mouth every morning. 90 tablet 3 5 Active levothyroxine (SYNTHROID) 88 MCG tabletIndications:A cquired hypothyroidism Take 1 tablet (88 mcg total) by mouth every morning. 90 tablet 3 5 Active sotalol (BETAPACE) 80 MG tablet TAKE 1 TABLET BY MOUTH 2 TIMES DAILY. 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/03/2024 Atrial fibrillation, unspecified type 06/17/2019 Acquired hypothyroidism 06/17/2019 MVP (mitral valve prolapse) Encounters Date Type Department Care Team Description 11/08/2025 11:27 AM PROCESS IMPROVEMENT SPECIALIST - 11/08/2025 11:59 PM PROCESS IMPROVEMENT SPECIALIST Hospital Encounter [facility] [address] [place] [address] Maverick Reis MD Discharge Disposition: Home or Self Care (Routine Discharge) 11/08/2025 Travel 09/22/2025 Results Follow-Up [facility] Family & Internal Medicine [address] [id number] Richard Azevedo, DO VIVEROS (EXACT SCIENCE) from Last 3 Months Immunizations Immunization Administration Dates Next Due Influenza (Generic) 09/12/2024 Influenza Adult (Generic) 09/15/2023,09/26/2020 Pneumococcal (Prevnar 20) 08/07/2022 Shingrix 08/05/2025 Tdap (Generic) 05/07/2016 Family History Medical History [...] Sign Reading Time Taken Comments Blood Pressure 114/72 08/05/2025 9:26 AM CDT Pulse 79 08/05/2025 9:26 AM CDT Temperature 36.3 C (97.3 F) 08/05/2025 9:26 AM CDT Respiratory Rate 16 08/05/2025 9:26 AM CDT Oxygen Saturation 97% 08/05/2025 9:26 AM CDT Inhaled Oxygen Concentration - - Weight 103.1 kg (227 lb 4.8 oz) 08/05/2025 9:26 AM CDT Height 185.4 cm (6' 1) 08/05/2025 9:26 AM CDT Body Mass Index 29.99 08/05/2025 9:26 AM CDT Plan of Treatment Upcoming Encounters Date Type Department Care Team (Late st Contact Info) Description 12/27/2025 11:15 AM PROCESS IMPROVEMENT SPECIALIST Office Visit [facility], [address] [phone] Maxwell López MD [facility]. [address] [phone] Health Maintenance Due Date Last Done Comments Hepatitis A Vaccines (1 of 2 - Risk 2-dose series) 1992 Hepatitis B Vaccines (1 of 3 - 19+ 3-dose series) 1992 Influenza Adult (#1) 2025 09/12/2024, 09/15/2023, 09/26/2020 Zoster Vaccines (2 of 2) 09/30/2025 08/05/2025 DTaP, Tdap and Td Vaccines (2 - Td or Tdap) 05/07/2026 05/07/2016 Annual Physical 08/05/2026 08/05/2025, 0711/2023, 07/18/2020, Additional history exists COVID-19 Vaccine ( season) 2026 12/01/2020, 11/10/2020 Postponed from 07/25/2025 (Future Appointment) Mammogram Screening 11/08/2026 11/08/2025, 09/28/2024, 09/09/2023, Additional history exists Colorectal Cancer Screening FIT-DNA (3 Years) 09/16/2028 09/16/2025, 09/16/2025, 08/15/2022, Additional history exists Hepatitis C Completed 08/07/2022 Pneumococcal Vaccine: 50+ Years Completed 08/07/2022 PHQ-2 (Physician [place]) Completed 08/05/2025 Meningococcal B Vaccine Aged Out No l [...] MG SCREENING W NATALIIA DWAYNE DIGI Routine 11/08/2025 11:50 AM PROCESS IMPROVEMENT SPECIALIST Screening mammogram for breast cancer COLOGUARD (EXACT SCIENCE) Routine 09/16/2025 8:05 AM CDT Screening for malignant neoplasm of colon HEPATITIS C ANTIBODY Routine 08/07/2022 1:48 PM CDT Screening for lipid disorders Screening for endocrine, metabolic and immunity disorder Need for hepatitis C screening test Annual physical exam from Last 3 Months or Most Recently Relevant to Health Maintenance Results * MG SCREENING W NATALIIA DWAYNE DIGI (11/08/2025 11:50 AM PROCESS IMPROVEMENT SPECIALIST) Anatomical Region Laterality Modality Breast Bilateral Mammography 11/08/2025 12:2 7 PM PROCESS IMPROVEMENT SPECIALIST Impressions 11/08/2025 12:28 PM PROCESS IMPROVEMENT SPECIALIST IMPRESSION: No suspicious mammographic findings. Recommendation: 1. Routine Screening, Bilateral Assessment: ACR BI-RADS 2 - BENIGN FINDING(S) Ordered By: MAVERICK Ariasally Signed By: Florentin Ryder on 11/08/2025 12:28 PM Interpreted By: Florentin Ryder, 11/08/2025 12:27 PM Narrative 11/08/2025 12:28 PM PROCESS IMPROVEMENT SPECIALIST [facility] [place] [address] Examination: Screening bilateral mammogram Exam Date/Time: 11/08/2025 11:39 AM Clinical history: No current complaints. Comparison: 09/28/2024 Technique: Digital screening mammography of both breasts was performed. Breast tomosynthesis acquisitions were obtained and reviewed. This study was read with the assistance of a computer-aided detection system. Tissue density: There are scattered areas of fibroglandular density. Findings: No suspicious masses, malignant appearing calcifications, skin thickening or other abnormalities are present. No significant change from the prior exam. us Maverick Reis MD MAMMO Final Result * COLOGUARD (EXACT SCIENCE) (09/16/2025 8:05 AM CDT) COLOGUARD RESULT Negative Negative [facility] (CLIA #:[id number]) Comment: The Cologuard (TM) test was performed on this specimen. NEGATIVE TEST RESULT. A negative Cologuard result [...] screened with both Cologuard and colonoscopy. (Jacinto Benitez, N Engl J Med 2014;370(14):1286- 1297) The normal value (reference range) for this assay is negative. COLOGUARD RE-SCREENING RECOMMENDATION: Periodic colorectal cancer screening is an important part of preventive healthcare for asymptomatic individuals at average risk for colorectal cancer. Following a negative Cologuard result, the [place] Cancer Society and U.S. Multi-Society Task Force screening guidelines recommend a Cologuard re-screening interval of 3 years. References: [place] [employer] Guideline for Colorectal Cancer Screening: https://www.cancer.org/cancer/bhfsn-ewylmr-moanqf/jyllujdwi-jmvpqdocc-tbkmgjc/ac s-rec ommendations.html.; Fidencio DK, Alireza POLANCO, Tonia StevensK, Colorectal Cancer Screening: Recommendations for Physicians and Patients from the U.S. Multi-Society Task Force on Colorectal Cancer Screening , Am J Gastroenterology 2017; 112:6843-1987. TEST DESCRIPTION: Composite algorithmic analysis of stool [...] Roldan et al, N Engl J Med 2014;370(14):3589-0074.) Cologuard may produce a false negative or false positive result (no colorectal cancer or precancerous polyp present at colonoscopy follow up). A negative Cologuard test result does not guarantee the absence of CRC or advanced adenoma (pre-cancer). The current Cologuard screening interval is every 3 years. ([place] Cancer Society and U.S. Multi-Society Task Force). Cologuard performance data in a 10,000 patient pivotal study using colonoscopy as the reference method can be accessed at the following location: www.Magzter.Grapeword/results. Additional description of the Cologuard test process, warnings and precautions can be found at www.cologuard.com. STOOL STOOL SPECIMEN / Unknown 09/16/2025 8:05 AM CDT 09/17/2025 3:06 PM CDT Richard Azevedo DO BODY FLUIDS AND STOOLS O RDERABLES Final Result Performing Organization Address [facility]/ZIP Co de Phone Number [place], [facility] [address] [place] [address], [place] (CLIA #:[id number]) [address] [place] [address] * HEPATITIS C ANTIBODY (08/07/2022 1:48 PM CDT) HEPATITIS C AB NON-REACTI VE NON-REACT MOHAMUD 08/07/2022 10:11 PM CDT [facility] Comment: ANTIBODIES TO HCV NOT DETECTED. DOES NOT EXCLUDE THE POSSIBILITY OF EXPOSURE TO HCV. 08/07/2022 1:48 PM CDT Richard Azevedo DO LABORATORY Final Re sult Performing Organization Address City/[facility] Co de Phone Number [facility] [address] [place] [address], [phone] from Last 3 Months or Most Recently Relevant to Health Maintenance [place] [address] [place] [address] Care Teams Grinder Operator Tool Relationship Specialty Start Date End Date Richard Azevedo DO [address] [place] [id number] PCP - General FAMILY PRACTICE 08/07/22
--- OUTSIDE RECORDS SUMMARY | 2025-11-18 08:32 | XMS_ITS | Clinical Summary ---
Author Organization [facility] [address] [facility] [address] Address [address] [place] [address] Care Team Providers Care Aluminum Molding Machine Operator Name Role Phone Mitali Garcia MD Primary Care Provider [phone] Allergies Active Allergy Reactions Criticality Noted Date [...] on file Legal Sex Female 12:58 AM MULTIMEDIA SPECIALIST Gender Identity Not on file Sexual Orientation Not on file Last Filed Vital Signs Vital Sign Reading Time Taken Comments Blood Pressure 104/72 12/08/2018 11:03 AM MULTIMEDIA SPECIALIST Pulse 76 12/08/2018 11:03 AM MULTIMEDIA SPECIALIST Temperature 37.1 C (98.7 F) 08/26/2017 12:27 PM CDT Respiratory Rate - - Oxygen Saturation 90% 12/08/2018 11:03 AM MULTIMEDIA SPECIALIST Inhaled Oxygen Concentration - - Weight 103.9 kg (229 lb) 12/08/2018 11:03 AM MULTIMEDIA SPECIALIST Height 185.4 cm (6' 1) 12/08/2018 11:03 AM MULTIMEDIA SPECIALIST Body Mass Index 30.21 12/08/2018 11:03 AM MULTIMEDIA SPECIALIST Plan of Treatment Not on file Insurance [facility] H[facility]/PPO Address: [facility] [address] [place] [address] Care Teams Aluminum Molding Machine Operator Relationship Specialty Start Date End Date Mitali Garcia MD PCP - General Family Practice 07/09/17
[2025-11-18 09:07] LABS: Hematocrit 41.2 % (37.0-47.0); Hemoglobin 14.0 g/dL (12.0-15.0); Immature Granulocyte Percent A 0.4 % (0-0.5); Lymphocytes Absolute Auto 2.47 K/mm3 (0.9-3.2); Mean Corpuscular HGB Conc 34.0 g/dl (32-36); Mean Corpuscular Hemoglobin 29.5 pg (26-34); Mean Corpuscular Volume 86.7 fl (80-100); Nucleated Red Blood Cells Absolute Auto 0.000 K/mm3 (0.0-0.012); Nucleated Red Blood Cells Perc 0.0 % (0.0-0.2); Platelet Count Result 289 k/mm3 (150-375); Red Blood Count 4.75 M/mm3 (4.2-5.4); White Blood Count 8.0 K/mm3 (4.5-10.0)
[2025-11-18 09:29] LABS: Alanine Aminotransferase 24 U/L (6-35); Albumin Level 4.2 g/dL (3.5-5.1); Alkaline Phosphatase 78 U/L (38-126); Anion Gap 11 mmol/L (4-12); Aspartate Amino Transferase 22 U/L (14-36); Bilirubin,Total 0.4 mg/dL (0.2-1.3); Blood Urea Nitrogen 13 mg/dL (7-17); Calcium 9.5 mg/dL (8.4-10.2); Carbon Dioxide 20 mmol/L (22-30); Chloride 105 mmol/L (98-107); Estimated Glomerular Filt Rate > 60; Glucose 98 mg/dL (65-110); Lipase 204 U/L (23-300); Potassium 4.3 mmol/L (3.4-5.0); Sodium 136 mmol/L (137-145); Total Protein 7.3 g/dL (6.3-8.2)
== END 2025-11-18 08:30 | disposition home or self-care (01) ==
PROVIDERS: PCP Student in an Organized Health Care Education/Training Program; Visit Provider Student in an Organized Health Care Education/Training Program
DX: R10.11 Right upper quadrant pain (principal)
CPT/HCPCS: 36415; 80053; 83690; 85025